=== PATIENT | male | born 1980 | race Caucasian/White ===

== ENCOUNTER 2023-02-16 11:09 | Outpatient (CLI) | payer OTHER, SELFPAY ==
--- NOTE | ~2023-02-16 | XR_ITS ---
EXAMINATION: XR wrist LT min 3V DATE: 02/16/2023 11:30 INDICATION: Left wrist pain. TECHNIQUE: 4 views of left wrist were obtained. COMPARISON: None. FINDINGS: Scapholunate dissociation is noted. There is dorsal tilt of lunate, consistent with dorsal intercalated segmental instability (DISI). No fracture. Joint spaces are normal. IMPRESSION: 1. Scapholunate dissociation with DISI. Reviewed, dictated and finalized at location A. 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
== END 2023-02-16 11:10 | disposition home or self-care (01) ==
LOC: ANHIMG 11:13
PROVIDERS: PCP Plastic Surgery; Visit Provider Plastic Surgery
DX: S63.509A Unspecified sprain of unspecified wrist, initial encounter (principal); X58.XXXA Exposure to other specified factors, initial encounter
CPT/HCPCS: 73110

== ENCOUNTER 2023-03-24 00:30 | Day surgery (SDC) | payer OTHER, SELFPAY ==
--- NOTE | 2023-03-16 16:38 | SUR.PREOP ---
Report to the Outpatient Waiting Room, entrance under the green pavilion located off [facility], at time 0600 on date 03/24/23. Planned Procedure Time: 0730. Time changes happen often and if your time is changed the preop area will call you the afternoon before. - You and your visitor will be asked to self-screen and do not enter if you have any COVID symptoms. - A mask is optional within the hospital at this time. - No food OR CLEAR LIQUIDS from midnight until time of surgery Take the following medications with a SIP of water the morning of surgery: TRAMADOL, ACETAMINOPHEN DO NOT STOP ANY OF YOUR OTHER PRESCRIPTION MEDICATIONS PRIOR TO SURGERY ?EXCEPT THE FOLLOWING Medications to discontinue per physician STOP TAKING YOUR MULTIVITAMIN 03/21 & FOLLOW UP WITH DR MUNIZ IN REGARDS TO CONTINUING YOUR IBUPROFEN Please no make-up, nail kazakh, hairspray, perfume, deodorant, or body powder the day of surgery. No jewelry (including any body piercings) or valuables the day of surgery, leave them at home. Please take a shower or bath the night before, or the morning of, surgery with an antibacterial soap. Wear comfortable, loose fitting clothing. Children are encouraged to wear pajamas. - Jewelry must be removed prior to entering the operating room. Rings and piercings that are not removed may be cut off. - The hospital will not accept responsibility for valuables. - Please leave all valuables, including medications, at home the day of surgery. If you are going home after surgery, a licensed screw driver operator must drive you home. - NO public transportation without another adult if you receive anesthesia. - We recommend that an adult stay with you for 24 hours following discharge. - We also recommend that you do not drive, make important decision, drink alcoholic beverages, or take any drugs that were not prescribed by your health care provider for at least 24 hours after your discharge time. For Pediatric surgeries, we recommend two adults accompany the child home. Follow any additional instructions given to you from your surgeon. If you or anyone in your household have experienced Covid symptoms in the past week, please notify your surgeon or the nurse liaison at the phone number below for possible testing. Telephone instructions given to GALINA ARMIJO and asked if any additional questions and then verbalized understanding. Patient advised to call surgeon office or pre surgery nurse liaison [phone] if any additional questions.
[2023-03-16 17:01] VITALS: BMI 29.7
--- NOTE | 2023-03-23 15:35 | P.PNAN_ITS ---
Anes - Initial Pre Proc Eval Procedure: Operation Date: 03/24/23 07:30 Proposed Procedures p Left Scapholunate Ligament Repair, Possible Reconstruction, Possible Radial Styloidectomy - Darcie Melara MD Date/Time: 03/23/23 15:35 Surgeon: Darcie Melara MD Pre Op Diagnosis: sprain left wrist Patient Data Age: 42 Gender: M Height: 1.85 m Weight: 102.2 kg Allergies Allergy/AdvReac Type Severity Reaction Status Date / Time No Known Allergies Allergy Verified 03/16/23 16:55 Home Medications Medication Instructions Recorded Confirmed Type acetaminophen 500 mg tablet 1,000 mg PO Q6H PRN Pain 03/16/23 03/16/23 History ibuprofen 600 mg tablet 600 mg PO Q6H PRN PAIN 03/16/23 03/16/23 History multivitamin 1 tablet PO DAILY 03/16/23 03/16/23 History tramadol 50 mg tablet 50 mg PO Q8-10H PRN Pain 03/16/23 03/16/23 History Patient hx anesthesia problems: none Family hx anesthesia problems: none Results Review: All pre-operative results and documents have been reviewed as part of the pre- operative evaluation. [facility] Past Medical History Medical History (Updated 03/23/23 @ 15:36 by Clark Castellon DO) Anxiety Social History Social History (Updated 02/16/23 @ 10:43 by Mary Norris MA) Smoking status: Never smoker Alcohol intake: current Lack of Transportation: No Lack of Food: Never True Current Housing: I Have Housing Concerned About Future Housing: No Difficulty Paying Gas/Electric Bills: No Difficulty Paying for Meds: No Currently Unemployed: No Education: Bachelor's Degree Difficulty w/ Childcare or Family Care: No Living arrangements: with family Spiritual care concerns: No Anes - Eval Final PreProcedure Day of Procedure 03/23/23 15:35 Patient weight: overweight Heart: regular rate and rhythm Lungs: clear to auscultation Airway: Mallampati scale class II Neurological: alert and oriented Last oral intake: >/= 8 hours ASA classification: II Emergent: no Anesthetic plan: proceed Anesthesia type and monitoring: general LMA and standard monitoring Results Review: All pre-operative results and documents have been reviewed as part of the pre- operative evaluation. Informed Consent: The patient's anesthetic plan and its attendant risks and benefits were discussed with the patient/family/POA. Questions were solicited and answers provided to the satisfaction of the patient/family/POA.
[2023-03-24] VITALS (11 sets, daily range): BP systolic 109–133; BP diastolic 63–83; PULSE 61–86; RESP 12–20; TEMP 36.6–36.8; O2SAT 95–99
--- NOTE | ~2023-03-24 | XR_ITS ---
XR surgery orthopedic DATE: 03/24/2023 08:56 INDICATION: Scapholunate ligament repair TECHNIQUE: AP and lateral spot views of the COMPARISON: None FINDINGS: There are lucencies of the scaphoid and lunate bones presumably related to scapholunate lig ament repair. There is subcutaneous and intra-articular emphysema as expected from surgical procedure . Please refer to surgical report. IMPRESSION: Postoperative changes of scaphoid and lunate bones Reviewed, dictated and finalized at Location [facility]. Reviewed, dictated and finalized at location L. 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
[2023-03-24] MEDS: LACTATED RINGERS 1,000 ML 30 ML IV CONT ×2 (07:00→09:12)
--- NOTE | 2023-03-24 07:02 | WPDHPUPDATE1 ---
History and Physical Update Update Date/Time: 03/24/23 07:02 Patient seen and examined in pre-operative holding area. No interval change in medical history or symptoms. Patient recalls previous discussion of benefits and alternatives to procedure. Continues to desire to proceed with left scpholunate ligament repair, possible recon possible radial styloidectomy . Reviewed procedure, post-op expectations and risks including but not limited to bleeding, infection, injury to tendon/nerve/vessel, decreased hand function, stiffness, RSD, no change or worsening of symptoms, failure of repair. I discussed the possible use of assistants and their participation in the case. Patient stated understanding and signed the consent form wishing to proceed.
--- NOTE | 2023-03-24 07:03 | W.PM.PROC2 ---
Procedure Note - Detailed Date of Procedure 03/24/23 Pre-op Diagnosis sprain left wrist Post-op Diagnosis Same Procedure Performed left scapholunate ligament reconstruction Surgeon Darcie Melara MD Circular Sawyer Stone amanda matos pa-c Anesthesia General Description of Procedure INFORMED CONSENT: The patient was seen and examined and marked in the pre-op area.? The patient signed the consent form. PROCEDURE IN DETAIL:The patient taken back to OR on the stretcher in supine position. Time out performed with anesthesia, surgeon and staff agreeing on patient's name site and surgery to be performed SCDs were placed on the lower extremities and inflated. A tourniquet was placed on {left} upper extremity and antibiotics given IV The?left upper extremity}?was prepped and draped in sterile fashion the??{left upper extremity} was? exsanguinated with Esmarch bandage and tourniquet inflated to 250mmHg I proceeded with making a longitudinal incision just ulnar to Miranda's tubercle through skin and dermis with a 15 blade scalpel. Littler scissors and 15 blade were used to spread down to extensor retinaculum and raise full thickness skin flaps. I incised the 3rd extensor compartment and identified the EPL which was retracted radially. I used a 15 blade to elevate the floor of the 4th extensor compartment to expose wrist capsule. I made an inverted T style capsulotomy and elevated capsular flaps exposing the scapholunate joint evacuating some hemarthrosis when doing so. There was notable widening of the SL interval which was reducible and a small residual portion of SL ligament was identified on the lunate. Mini c-arm was used to verify ability to reduce the SL interval. I proceeded with placing 0.045 k wires in lunate and distal pole of scaphoid as joysticks. I proceeded with placing a 3.5mm arthrex swivel lock anchor and internal brace in the proximal pole of scaphoid along with a 2-0 fiberwire suture. The remnant SL ligament on the lunate was sutured to the proximal pole of the scaphoid using the 2-0 fiberwire while the scapholunate interval was reduced iwth the joysticks. I then placed a 3.5 swivel lock into the lunate anchoring the internal brace from proximal pole of the scaphoid. This was then anchored to distal scaphoid using another swivel lock anchor to complete the 3 point ligament reconstruction. placement of k-wires and anchors were verified on multiple views of fluorosocopy. Lastly, I tied the internal brace from distal pole back to its other tail at scaphoid proximal pole. There was good stability and maintenance of reduction visually and on mini c-arm. I irrigated with normal saline and repaired capsule with 3-0 vicryl suture. 3-0 viryl was used to repair the extensor retinaculum back to miranda's tubercle with EPL reduced into 3rd compartment. dermis was closed with 3-0 vicryl and 4-0 monocryl for skin. I injected {10}cc 1%lido with epi and 0.5% marcaine plain for median, ulnar, radial nerve block at the wrist A dressing of Dermabond, 4x4, tiki, and a thumb splint was applied and secured with an lebron bandage after the tourniquet was let down noting the hand was warm and well perfused. The patient was then awaken from anesthesia and transferred to the recovery room in stable condition.? Complications - none EBL- 2cc Disposition - home in stable conditions Amanda Matos PA-C was essential for positioning, retraction, instrumentation, closure and dressing placement [facility] Billing Surgery - Charge Forward: Surgery Billing ([id number] same for amanda with modifier )
[2023-03-24] MEDS: ceFAZolin 2 GM/D5W 50 ML 2 GM/50 ML BAG IVPB (07:28)
[2023-03-24] MEDS: BUPivacaine HCL 0.5% PF 30 ML VIAL 5 ML INFILTRATE (07:44)
[2023-03-24] MEDS: LIDOCAINE HCL 1% LOCAL INJ 20 ML VIAL 5 ML INFILTRATE (07:44)
[2023-03-24] MEDS: fentaNYL CITRATE INJ (*CRX) 100 MCG/2 ML VIAL 25 MCG IV PUSH ×8 (09:11→10:19)
[2023-03-24] MEDS: KETOROLAC 15 MG/ML VIAL (*BKC) IV PUSH (09:31)
[2023-03-24] MEDS: HYDROmorphone HCL INJ (*CRX) 1 MG/ML SYR 0.5 MG IV PUSH ×4 (09:51→10:08)
[2023-03-24] MEDS: oxyCODONE HCL (*CRX) 5 MG TAB IR PO (10:38)
== END 2023-03-24 11:30 | disposition home or self-care (01) ==
PROVIDERS: Visit Provider Plastic Surgery
PROC: (CPT 25320; principal; 2023-03-24 07:30)
DX: S63.509A Unspecified sprain of unspecified wrist, initial encounter (principal); X50.0XXA Overexertion from strenuous movement or load, initial encounter
CPT/HCPCS: 25320; 99199; A9270; C1713; J0690; J1100; J1170; J1885; J2250; J2405; J2704; J3010; J7120

== ENCOUNTER 2023-04-06 08:41 | Outpatient (CLI) | payer OTHER, SELFPAY ==
--- NOTE | ~2023-04-06 | XR_ITS ---
Left wrist Technique: PA and lateral views were obtained. Clinical History: Sprain COMPARISON: 02/16/2023 Findings: There is a cast overlying the wrist and thumb. There is apparent decreased widening of the scapholunate interval is compared to prior exam, but there is apparent persistent DISI on lateral vie w. There is a prominent lucent area at the distal radial styloid process, which could reflect disuse osteopenia versus possibly other lytic or erosive lesion. No acute fracture evident.. Impression: Persistent DISI, with apparent decreased widening of the scapholunate interval is compared to prior e xam. Cast overlying the wrist and thumb. Relative lucent area at the radial styloid process could reflect localized disuse osteopenia. Correlate for possibility of any other lytic osseous lesion. Reviewed, dictated and finalized at [facility]. GER FURNITURE Impression: Persistent DISI, with apparent decreased widening of the scapholunate interval is compared to prior exam. Cast overlying the wrist and thumb. Relative lucent area at the radial styloid process could reflect localized disuse osteopenia. Correlate for possibility of any other lytic osseous lesion.
== END 2023-04-06 08:42 | disposition home or self-care (01) ==
LOC: ANHIMG 08:48
PROVIDERS: Visit Provider Physician Assistant Surgical
DX: S63.509D Unspecified sprain of unspecified wrist, subsequent encounter (principal); X58.XXXD Exposure to other specified factors, subsequent encounter
CPT/HCPCS: 73100